=== PATIENT | female | born 2005 | race African-American/Black ===

== ENCOUNTER 2024-12-25 13:41 | Emergency (ER) | payer MEDICAID ==
[~2024-12-25] VITALS: Ht 167.6 cm; Wt 75.3 kg
[2024-12-25 13:51] VITALS: BP 136/85; PULSE 106; RESP 16; TEMP 36.8; O2SAT 100; O2SAT 99
[2024-12-25 16:20] LABS: BASOPHILS % 0.5 % (0.0-2.0); DIFFERENTIAL COMMENT 0; EOSINOPHILS % 1.5 % (0.0-5.0); HEMATOCRIT. 40.4 % (36.0-48.0); HEMOGLOBIN. 12.3 g/dL (12.0-16.0); LYMPHOCYTES % 37.1 % (20.0-50.0); MEAN CORPUSCULAR HEMOGLOBIN 22.3 pg (28.0-32.0); MEAN CORPUSCULAR HGB CONC 30.3 g/dL (31.0-37.0); MEAN CORPUSCULAR VOLUME 73.4 fL (81.0-99.0); MEAN PLATELET VOLUME 9.8 fl (7.4-10.4); MONOCYTES % 8.2 % (2.0-8.0); NEUTROPHILS % 52.7 % (40.0-76.0); PLATELET 298 x1000/uL (130-400); RED BLOOD CELL COUNT 5.51 mill/uL (4.2-5.4)
[2024-12-25 16:27] LABS: CHLORIDE 102 mEq/L (98-107); POTASSIUM 3.8 mEq/L (3.5-5.1); SODIUM 139 mEq/L (136-145)
[2024-12-25 16:28] LABS: CARBON DIOXIDE 28 mEq/L (21-32)
[2024-12-25 16:29] LABS: CALCIUM 9.8 mg/dL (8.7-10.4)
[2024-12-25 16:33] LABS: CREATININE 0.7 mg/dL (0.6-1.0); GLUCOSE 81 mg/dL (70-105)
[2024-12-25 16:34] LABS: UREA NITROGEN BLOOD 9 mg/dL (9-23)
[2024-12-25 16:36] LABS: TROPONIN I HIGH SENSITIVITY < 4 ng/L (3.0-34)
== END 2024-12-25 15:30 | disposition left against medical advice (07) ==
LOC: ER 15:21
DX: R07.89 Other chest pain (principal)
CPT/HCPCS: 36415; 71045; 80048; 84484; 85025; 93005; 99285